=== PATIENT | female | born 1935 | race Caucasian/White ===

== ENCOUNTER 2016-05-13 15:04 | Inpatient (IN) | payer OTHER ==
--- NOTE | 2016-05-13 16:10 | PROVIDER DOCUMENTATION ---
HPI-Neurological Disorder - General Source: patient, family - History of Present Illness-Neuro Severity: reports: moderate Onset/Duration: reports: this morning (11) Timing: reports: still present Context: reports: recent infection, fever, impaired speech Any recent trauma/injury?: reports: none Character of Deficits: reports: impaired speech New weakness or altered sensation location:: reports: none Cognitive Baseline: other (trouble speaking) Gait Baseline: unable to walk <Anita Ling - Last Filed: 05/13/16 17:49> <Martin Wilson - Last Filed: 05/13/16 18:17> <Rayne Ornelas - Last Filed: 05/13/16 21:03> - General Chief Complaint: Shortness of Breath Stated Complaint: FEVER/B/P PROBLEMS Time Seen by Provider: 05/13/16 15:39 Allergies/Adverse Reactions: Patient Allergies Allergy/AdvReac Type Severity Reaction Status Date / Time Penicillins Allergy Unknown Verified 05/13/16 15:19 Home Medications: Home Medication List Medication Instructions Recorded Confirmed Last Taken Type Aspirin [Aspir-Low] 81 mg PO DAILY 05/13/16 05/13/16 Unknown History Calcium Carbonate [Calcium] 1,200 mg PO BID 05/13/16 05/13/16 Unknown History Fluticasone Propionate [Flovent 110 05/13/16 Unknown History Hfa] Furosemide [Lasix] 40 mg PO DAILY 05/13/16 05/13/16 Unknown History Montelukast Sodium [Singulair] 10 mg PO DAILY 05/13/16 05/13/16 Unknown History Nabumetone [Relafen] 500 mg PO BID 05/13/16 05/13/16 Unknown History Polyethylene Glycol 3350 [Miralax] 18 gm PO DAILY 05/13/16 05/13/16 Unknown History Potassium Chloride 20 meq PO BID 05/13/16 05/13/16 Unknown History Verapamil HCl [Verelan] 200 mg PO 05/13/16 Unknown History - History of Present Illness-Neuro Nature of Presenting Problem: Presents to er with family with cc of fever of 100.9 since 11 this morning per family. Reports pt is on her second round of macrobid for UTI and states this am pt took a chill and then her diastolic BP was 145 then pt became incoherent, having trouble speaking and unable to sit up straight. pt is nonambulatory normally per family. Pt reports she has had a cough. Pt denies sob,n,v,cp,abd pain. (Anita Ling) Review of Systems - Adult - REVIEW OF SYSTEMS - ADULT Constitutional: reports: chills, fever. denies: fatique, night sweats, weight gain, weight loss Ears, Nose, Mouth & Throat: denies: ear pain, sinus problem, throat pain Cardiovascular: denies: chest pain, irregular heart rate, orthopnea, syncope Respiratory: reports: cough. denies: pleurisy, shortness of breath, wheezing Gastrointestinal: denies: abdominal pain, diarrhea, nausea, vomiting Musculoskeletal: denies: bone pain, joint pain, joint swelling, neck pain Neurological: reports: other (trouble speaking). denies: dizziness/vertigo, headache/migraines, numbness, paresthesia, seizure, slurred speech <Anita Ling - Last Filed: 05/13/16 17:49> Past History - Adult - PAST MEDICAL HISTORY-ADULT Review of Records: reports: Nursing Assessment Review Major Childhood Illnesses: reports: denies history Cardiovascular: reports: HTN Respiratory: reports: asthma, COPD - PRIOR SURGERIES/PROCEDURES Surgical/Procedure History: reports: appendectomy, breast - IMMUNIZATION STATUS Childhood Immunizations: See Nurse Assessment Flu Vaccine: See Nurse Assessment - SOCIAL HISTORY Smoking: denies Substance Use: none/never <Anita Ling - Last Filed: 05/13/16 17:49> Physical Exam- Neurological - Physical Exam-Neuro Initial Vital Signs Reviewed: Yes General Appearance: alert, slow to respond, other (weak). negative: appears well Eye Exam: bilateral eye: normal inspection, PERRL, EOMI HENMT: moist mucous membranes, normal ENT inspection, TMs normal, pharynx normal Head Injury: no evidence of injury Respiratory: chest non-tender, lungs clear, no pleuratic chest pain, no respiratory distress, no accessory muscle use, decreased breath sounds (all lung ramos) Cardiovascular: no edema, no gallop, no JVD, no murmur, tachycardia Abdominal Exam: non tender, soft, no organomegaly, no pulsatile mass Peripheral Pulses: dorsalis-pedis (R): 2+, dorsalis-pedis (L): 2+ Extremity: no pedal edema, other (diffuse extremity weakness (normal per family) ) service person Exam: normal hearing, PERRL. negative: normal speech, facial weakness Motor/Sensory: no sensory deficit Integumentary: normal color, normal turgor, warm/dry Psych/Mental Status: oriented x 3 - Glascow Coma Scale Best Eye Response: (4) open spontaneously Best Verbal Response: (5) oriented Best Motor Response: (6) obeys commands Total Glascow Score: 15 <Anita Ling - Last Filed: 05/13/16 17:49> Progress - EKG 1 Time of EKG reading by physician:: 17:26 EKG Read and Signed by:: Martin Wilson EKG Interpretation (*Must complete 3 of following elements*): Abnormal Rate: 101 Rhythm: sinus tachy [place]: left QRS: normal - XRAY 1 XRAY: Bilateral XRAY Study: Chest Impression: Abnormal XRAY Interpretation: poor inspiration - CT/MRI 1 CT Study: Head Impression: Abnormal (chronic appearing changes as detailed above but no definite acute intracranial patholgoy. Incidental bilateral mastoid air cell effusion) - CHANGE OF SHIFT REPORT (ED Provider) Report Given and Care Transferred to:: Time of Transfer: 18:00 Items Pending: Other (urine and diagnosis; admit) <Anita Ling - Last Filed: 05/13/16 17:49> <Martin Wilson - Last Filed: 05/13/16 18:17> - CT/MRI 2 CT Study: Angiogram, Pelvis Impression: Normal CT Results: No free air,free fluid,obstruction, hydronephrosis-- radiologist - CONSULTS/PCP/HOSPITALIST Notification #1 *Consult/PCP/Hospitalist*: Dr. Flores- Hospitalist [place] Time Discussed: 20:49 Consult Disposition: Admit <Rayne Ornelas - Last Filed: 05/13/16 21:03> - PLAN OF CARE/RESULTS Progress/Plan/Lab Results: Orders Category Date Time Status Cardiac Monitoring DIRECTED Care 05/13/16 16:03 Active Finger Stick Blood Sugar (ED) DIRECTED Care 05/13/16 16:03 Active Misc. NRSG Communication Order DIRECTED Care 05/13/16 16:03 Active Saline Loc NOW Care 05/13/16 16:03 Active CHEST-PORTABLE [RAD] Stat Exams 05/13/16 16:03 Ordered HEAD W/O CONTRAST [CT] Stat Exams 05/13/16 16:03 Ordered CBC WITH ELECTRONIC DIFF [HEME] Stat Lab 05/13/16 16:03 Ordered COMPREHENSIVE METABOLIC PANEL [CHEM] Stat Lab 05/13/16 16:[address]IME WITH INR PL [COAG] Stat Lab 05/13/16 16:[address] [COAG] Stat Lab 05/13/16 16:03 Ordered TROPONIN T Stat Lab 05/13/16 16:[address] W/POSS RFLX CULT [URINALYSIS] Stat Lab 05/13/16 16:03 Uncollected URINE DRUG SCREEN PL Stat Lab 05/13/16 16:03 Uncollected 0.9% Sodium Chloride Inj [Ns] 1,000 ml Med 05/13/16 16:03 Active IV 75 mls/hr EKG [EKG] Stat Ther 05/13/16 16:03 Ordered Vital Signs - 24 hr 05/13/16 15:11 Temperature 97 F L Pulse Rate 124 H Respiratory 31 H Rate Blood Pressure 140/77 O2 Sat by Pulse 94 L Oximetry Laboratory Tests 05/13/16 05/13/16 05/13/16 15:20 15:20 15:20 WBC 15.83 H RBC 4.81 Hgb 14.8 Hct 43.6 MCV 90.6 MCH 30.8 MCHC 33.9 RDW Std Deviation 14.0 Plt Count 218 MPV 11.8 H Immature Gran % (Auto) 0.3 Neut % (Auto) 93.3 H Lymph % (Auto) 2.5 L Clark % (Auto) 3.6 Eos % (Auto) 0.2 Baso % (Auto) 0.1 Immature Gran # (Auto) 0.05 H Neut # (Auto) 14.77 H Lymph # (Auto) 0.40 L Clark # (Auto) 0.57 Eos # (Auto) 0.03 Baso # (Auto) 0.01 PT INR APTT (Factor Assay) Sodium 133 L Potassium 4.1 Chloride 98 Carbon Dioxide 22 L Anion Gap 13 BUN 24 H Creatinine 1.1 H Estimated GFR/1.73 m2 48 BUN/Creatinine Ratio 22 Glucose 123 H Calculated Osmolality 272 Calcium 10.3 H Total Bilirubin 0.50 AST 167 H ALT 141 H Alkaline Phosphatase 167 H Troponin T < 0.010 Total Protein 8.0 Albumin 4.3 Globulin 4.0 Albumin/Globulin Ratio 1.0 05/13/16 15:20 WBC RBC Hgb Hct MCV MCH MCHC RDW Std Deviation Plt Count MPV Immature Gran % (Auto) Neut % (Auto) Lymph % (Auto) Clark % (Auto) Eos % (Auto) Baso % (Auto) Immature Gran # (Auto) Neut # (Auto) Lymph # (Auto) Clark # (Auto) Eos # (Auto) Baso # (Auto) PT 12.9 INR 0.94 APTT (Factor Assay) 34.0 Sodium Potassium Chloride Carbon Dioxide Anion Gap BUN Creatinine Estimated GFR/1.73 m2 BUN/Creatinine Ratio Glucose Calculated Osmolality Calcium Total Bilirubin AST ALT Alkaline Phosphatase Troponin T Total Protein Albumin Globulin Albumin/Globulin Ratio (Anita Ling) Attestation - Scribe Verification/Attestation Scribe:: Anita Ling Acting as Scribe for:: Martin Wilson Scribe documention review:: This chart was documented by a scribe and accurately reflects the service the provider performed and the decisions made by the provider. - Scribe Verification/Attestation #2 Shift Change Time: 18:00 Scribe Name: Rayne Ornelas Acting as Scribe for:: Donnie Hurtado <Anita Ling - Last Filed: 05/13/16 17:49> Physician Attestation - Physician Attestation I, the provider, attest to the following statement:: Martin Wilson Physician documentation Attestation:: This documentation recorded by the scribe accurately reflects the service I personally performed and the decisions made by me. <Martin Wilson - Last Filed: 05/13/16 18:17>
[2016-05-13 16:57] LABS: INR 0.94 (0.86-1.15); PROTIME 12.9 Seconds (12.1-15.5)
[2016-05-13 16:58] LABS: BASO% 0.1 % (0.0-0.8); EOS# 0.03 X1000 (0.0-0.7); EOS% 0.2 % (0.0-10.0); HEMATOCRIT 43.6 % (37.0-47.0); HEMOGLOBIN 14.8 g/dL (12.0-16.0); IMM GRAN# 0.05 X1000 (0.0-0.04); IMM GRAN% 0.3 % (0.0-0.5); LYMPH% 2.5 % (20.5-51.1); MANUAL DIFF NEEDED? NO; MCH 30.8 PG (27-31); MCHC 33.9 g/dL (33-37); MCV 90.6 FL (81-99); MONO# 0.57 X1000 (0.11-0.59); MONO% 3.6 % (1.7-9.3); MPV 11.8 FL (7.4-10.4); NEUT% 93.3 % (42.2-75.2); PLT 218 X1000 (130-400); RBC 4.81 XMIL (4.2-5.4)
--- NOTE | 2016-05-13 17:12 | Diag Imaging Result Document ---
PROCEDURE NAME: HEAD W/O CONTRAST - 05/13/2016 CT HEAD WITHOUT CONTRAST: COMPARISON: None available. FINDINGS: There is diffuse brain atrophy and there is patchy low attenuation in the periventricular and subcortical white matter suggesting at least moderate microangiopathy. There is a chronic lacunar infarct involving the left cerebellar hemisphere and there is a chronic lacunar infarct versus a prominent Virchow Feng space involving the thalamus on the right. There is no definite acute infarct given the limited sensitivity of CT versus MRI. There is no discrete intracranial mass, mass effect, or intracranial hemorrhage. There are bilateral mastoid air cell effusions with trace fluid on the left and more significant fluid on the right. Surrounding soft tissues and bony structures are essentially unremarkable, otherwise. IMPRESSION: 1. Chronic-appearing changes as detailed above, but no definite acute intracranial pathology. 2. Incidental bilateral mastoid air cell effusions.
--- NOTE | 2016-05-13 17:18 | Diag Imaging Result Document ---
PROCEDURE NAME: CHEST-1 VIEW - 05/13/2016 AP CHEST: FINDINGS: The inspiration is somewhat suboptimal. There may be some atelectasis in the left lower lobe; however, overall there has been no appreciable change since 09/18/2014. IMPRESSION: Poor inspiration.
[2016-05-13 17:25] LABS: ALBUMIN 4.3 g/dL (3.5-5.0); CALCIUM 10.3 mg/dL (8.8-10.2); POTASSIUM 4.1 mmol/L (3.5-5.1); TOTAL BILIRUBIN 0.5 mg/dL (0.20-1.00)
--- NOTE | 2016-05-13 17:36 | EKG Report ---
Test Performed on : 05/13/2016 5:26:28 PM Test Reason : Stroke like symptoms Blood Pressure : / mmHG Vent. Rate : 101 BPM Atrial Rate : 101 BPM P-R Int : 150 ms QRS Dur : 076 ms QT Int : 324 ms P-R-T Axes : 047 -33 055 degrees QTc Int : 420 ms Sinus tachycardia. Left axis deviation Abnormal ECG No previous ECGs available Unconfirmed Result
[2016-05-13 17:51] LABS: URINE SOURCE VOIDED
[2016-05-13 18:03] LABS: BILIRUBIN URINE NEGATIVE (NEGATIVE); BLOOD URINE NEGATIVE (NEGATIVE); COLOR YELLOW; GLUCOSE URINE NEGATIVE (NEGATIVE); LEUKOCYTES URINE 1+ (NEGATIVE); NITRITE URINE NEGATIVE (NEGATIVE); PROTEIN URINE NEGATIVE (NEGATIVE); UROBILINOGEN URINE NORMAL
[2016-05-13 18:04] LABS: UR AMPHETAMINES QUAL NONE DETECTED (NONE DETECT); UR BARBITUATES QUAL NONE DETECTED (NONE DETECT); UR BENZODIAZEPIN QUAL NONE DETECTED (NONE DETECT); UR CANNABINOIDS QUAL NONE DETECTED (NONE DETECT); UR COCAINE QUAL NONE DETECTED (NONE DETECT); UR MDMA QUAL NONE DETECTED (NONE DETECT); UR METHADONE QUAL NONE DETECTED (NONE DETECT); UR METHAMPHETAMINE QUAL NONE DETECTED (NONE DETECT); UR OPIATES QUAL NONE DETECTED (NONE DETECT); UR OXYCODONE QUAL NONE DETECTED (NONE DETECT); UR PCP QUAL NONE DETECTED (NONE DETECT); UR TCA QUAL NONE DETECTED (NONE DETECT)
[2016-05-13 18:27] LABS: CLARITY VERY CLOUDY (CLEAR); URINE CULTURE PL NEEDED? YES; URINE EPITHELIAL CELLS <10 /HPF (<10)
[2016-05-13] MEDS ORDERED: LEVAQUIN 500 MG/D5W 100 ML IV ONE (20:56)
[2016-05-13] MEDS ORDERED: ZOFRAN IV PRN ×2 (20:59→21:56)
[2016-05-13] MEDS ORDERED: TYLENOL PO PRN (20:59)
[2016-05-13] MEDS: NS 1,000 ML IV PRN (22:27)
[2016-05-14] MEDS: VENTOLIN HFA INH SCH (07:31)
[2016-05-14] MEDS: FLOVENT 220 MICROGM HFA INH SCH ×2 (07:51→19:21)
[2016-05-14] MEDS: BROVANA NEB INH SCH (07:51)
[2016-05-14] MEDS ORDERED: DUONEB (A & A) INH PRN (08:04)
--- NOTE | 2016-05-14 08:23 | Diag Imaging Result Document ---
PROCEDURE NAME: ABDOMEN/PELVIS W/O CONTRAST - 05/13/2016 CT UROGRAM WITHOUT CONTRAST: FINDINGS: There are mild atelectatic changes present in the lung bases. There is beam-hardening artifact from the patient's arms which could not be removed from the field. There is extensive coronary calcification. There has been cholecystectomy. There is no evidence of hydronephrosis. There are apparent exophytic renal cysts bilaterally. There is some stool in the colon without evidence of dilatation. The small bowel is not distended. There is extensive atherosclerotic calcification in the aorta which is not distended. There has been previous appendectomy. There is no evidence of free fluid. There has been previous internal fixation of the left proximal femur, and there are old fractures of the ischiopubic ramus on the left. There are spondylotic changes in the lumbar spine with multilevel kyphoplasty. IMPRESSION: No evidence of acute intra-abdominal disease.
[2016-05-14] MEDS: VERELAN PM PO SCH ×2 (08:29→21:24)
[2016-05-14] MEDS: RELAFEN PO SCH ×2 (08:29→21:24)
[2016-05-14] MEDS: CALTRATE 600 PO SCH ×2 (08:29→21:24)
[2016-05-14] MEDS: ASPIRIN EC PO SCH (08:29)
[2016-05-14] MEDS: KLOR-CON PO SCH ×2 (08:29→21:24)
[2016-05-14] MEDS: SINGULAIR PO SCH (08:29)
[2016-05-14] MEDS: LASIX PO SCH (08:29)
[2016-05-14 08:45] LABS: HEMATOCRIT 36.1 % (37.0-47.0); HEMOGLOBIN 12.3 g/dL (12.0-16.0); MCH 31.1 PG (27-31); MCHC 34.1 g/dL (33-37); MCV 91.4 FL (81-99); MPV 11.5 FL (7.4-10.4); RBC 3.95 XMIL (4.2-5.4)
[2016-05-14 08:55] LABS: AGAP 9; ALBUMIN 3.1 g/dL (3.5-5.0); ALKALINE PHOSPHATASE 114 U/L (32-104); BUN 18 mg/dL (8-22); CALCIUM 9.2 mg/dL (8.8-10.2); CHLORIDE 102 mmol/L (98-107); COSMO 270; GOT 70 U/L (10-30); GPT 85 U/L (10-36); MAGNESIUM 1.8 mg/dL (1.5-2.7); POTASSIUM 3.6 mmol/L (3.5-5.1); SODIUM 134 mmol/L (136-145); TCO2 24 mmol/L (25-35)
[2016-05-14] MEDS: MERREM 1 GM in NS 50 ML IV SCH ×2 (08:57→16:43)
--- NOTE | 2016-05-14 11:11 | HISTORY AND PHYSICAL ---
PRIMARY CARE PHYSICIAN: Dr. Kannan Gilbert. CHIEF COMPLAINT: Shortness of breath and generalized weakness. HISTORY OF PRESENT ILLNESS: This is a 80-year-old female with a history of breast cancer, asthma, hypertension, and thyroid disease, who presented to the emergency room complaining of shortness of breath that started during the day. Around 11:00, she developed a fever of 100.9 and has had generalized weakness. She then had trouble speaking and was unable to sit up straight according to the family. Therefore, she was brought him to the emergency room for evaluation. She did state that she has had a cough for a few days. Of note, the patient is nonambulatory. She denies any further symptoms. Chest x-ray revealed left lower lobe pneumonia. She was noted to have a white count of 15. In the emergency room, blood cultures and urine cultures were obtained. She was given Levaquin and admitted for further evaluation and treatment. PAST MEDICAL HISTORY: Asthma, breast cancer, hypertension, hypothyroid. PAST SURGICAL HISTORY: Appendectomy, mastectomy, back surgery, left knee surgery. SOCIAL HISTORY: Denies alcohol, tobacco, or illicit drug use. Lives with family members. ALLERGIES: Penicillin to which she states that she was told that she was allergic. She is unsure of the reaction. HOME MEDICATIONS: Foradil 1 puff b.i.d., ProAir inhaler twice a day, verapamil 200 mg b.i.d., Flovent b.i.d., Relafen 500 b.i.d., Singulair 10 daily, Lasix 40 daily, potassium chloride 20 b.i.d., calcium 1200 b.i.d., aspirin 81 mg daily. REVIEW OF SYSTEMS: A 14-point review of systems is discussed with the patient with pertinent positives stated in HPI. She denies any chest pain, palpitations, syncope, dizziness, any PND, orthopnea, any nausea, vomiting, diarrhea, constipation, black or bloody vomitus, black or bloody stools hematuria. She did have dysuria. PHYSICAL EXAMINATION: GENERAL: This is an 80-year-old female, who is lying in the bed, in no distress. VITAL SIGNS: Blood pressure is 147/73, heart rate 76, respirations are 18, temperature is 98 degrees with oxygen saturations of 99% on 2 L nasal cannula. CARDIOVASCULAR: Regular rate and rhythm. S1 and S2 appreciated. PULMONARY: Breath sounds are clear. She does have some rhonchi that do clear to cough. She has decreased in the bases. GASTROINTESTINAL: Soft, nontender, nondistended with bowel sounds in all 4 quadrants. EXTREMITIES: No clubbing, cyanosis, or edema. Pulses are palpable x4. NEUROLOGIC: She is alert and oriented x3. DIAGNOSTICS: WBC is 15.83 with a hemoglobin of 14.8, hematocrit 43.6, and platelets of 218,000. Sodium is 133, potassium 4.1, BUN is 24, creatinine 1.1 with a glucose of 123. AST of 167, ALT 141, and alkaline phosphatase 167. Troponin is negative. Blood cultures and urine cultures are pending. Chest x-ray revealed a left lower lobe atelectasis. ASSESSMENT AND PLAN: 1. Leukocytosis. 2. Left lower lobe atelectasis, probable pneumonia. 3. History of chronic obstructive pulmonary disease. 4. Asthma. 5. History of breast cancer. 6. Recurrent urinary tract infection. 7. Hyponatremia. 8. Elevated liver function tests. The patient will be admitted to the hospital. She will be placed on telemetry. We will continue her home medications. We will trend daily labs and replete electrolytes as necessary. DuoNeb q.4 hours and q.2 hours p.r.n. with incentive spirometer. In review of the patient's previous sensitivities, she has had an Escherichia coli urinary tract infection with 3 cultures, the last being 04/03/2016. She was extended-spectrum beta-lactamase positive. 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 She has tried nitrofurantoin twice with no change in symptoms. We did verify the reaction to penicillin, as she states that she was told that when she was a child that she had an allergy. She is not sure. She has taken Zithromax multiple times with no problems. We will go ahead and start Merrem. Once our sensitivities return, if needed, we will change antibiotics. Further treatments pending hospital course. Dictated by DAVON Reinoso for Jimi Flores MD
[2016-05-14] MEDS: DUONEB (A & A) INH SCH ×4 (11:23→23:03)
[2016-05-14] MEDS: NS 1,000 ML IV PRN (12:40)
[2016-05-14] MEDS: TYLENOL PO PRN (12:44)
[2016-05-14] MEDS ORDERED: MYCOSTATIN SUSP PO ONE (21:14)
[2016-05-14] MEDS: LEVAQUIN 500 MG/D5W 100 ML IV SCH (21:24)
[2016-05-15] MEDS: MERREM 1 GM in NS 50 ML IV SCH ×3 (00:07→16:51)
[2016-05-15] MEDS: DUONEB (A & A) INH SCH ×6 (02:46→23:25)
[2016-05-15] MEDS: NS 1,000 ML IV PRN ×2 (03:35→16:52)
[2016-05-15 06:22] LABS: HEMATOCRIT 32.8 % (37.0-47.0); HEMOGLOBIN 10.9 g/dL (12.0-16.0); MCH 30.8 PG (27-31); MCHC 33.2 g/dL (33-37); MCV 92.7 FL (81-99); MPV 11.9 FL (7.4-10.4); RBC 3.54 XMIL (4.2-5.4)
[2016-05-15 06:39] LABS: AGAP 10; ALBUMIN 2.6 g/dL (3.5-5.0); ALKALINE PHOSPHATASE 99 U/L (32-104); BUN 12 mg/dL (8-22); CALCIUM 9.3 mg/dL (8.8-10.2); CHLORIDE 104 mmol/L (98-107); COSMO 270; GOT 45 U/L (10-30); GPT 59 U/L (10-36); SODIUM 135 mmol/L (136-145); TCO2 21 mmol/L (25-35); TOTAL PROTEIN 5.6 g/dL (6.3-8.3)
[2016-05-15] MEDS: BROVANA NEB INH SCH ×3 (06:47→19:43)
[2016-05-15] MEDS: VENTOLIN HFA INH SCH ×2 (06:48→09:15)
[2016-05-15] MEDS: FLOVENT 220 MICROGM HFA INH SCH ×2 (07:14→19:43)
[2016-05-15] MEDS ORDERED: DIFLUCAN PO ONE (09:36)
[2016-05-15] MEDS: LASIX PO SCH (09:49)
[2016-05-15] MEDS: VERELAN PM PO SCH ×2 (09:49→20:01)
[2016-05-15] MEDS: SINGULAIR PO SCH (09:49)
[2016-05-15] MEDS: RELAFEN PO SCH ×2 (09:49→20:01)
[2016-05-15] MEDS: KLOR-CON PO SCH ×2 (09:49→20:01)
[2016-05-15] MEDS: CALTRATE 600 PO SCH ×2 (09:49→20:01)
[2016-05-15] MEDS: ASPIRIN EC PO SCH (09:50)
--- NOTE | 2016-05-15 11:00 | PROGRESS NOTE ---
DATE: 05/15/2016 SUBJECTIVE: Patient states she is feeling a lot better this morning. Denies any current fevers or chills. Denies any cough or congestion. PHYSICAL: Temp 98, pulse 80, respiratory 20, BP 104/71.General: Patient well developed, well nourished. Currently in no real respiratory distress. She is awake, alert. Neck: Supple. CV: Regular rate. Chest: Relatively clear. Abdomen: Soft. Extremities: Moves all extremities. Neurologic: No changes. ASSESSMENT: 1. Leukocytosis resolved. 2. Anemia, mild, chronic disease. 3. Hyponatremia resolved. 4. Acute renal failure resolved. 5. Hypercalcemia resolved secondary to volume depletion. 6. Volume depletion resolved. 7. Acute hepatitis improving. 8. Mild protein calorie malnutrition. 9. Urinary tract infection. PLAN: Will continue patient on antibiotics until her urine is negative at 48 hours. Hopefully can discharge home in the a.m.
[2016-05-15] MEDS: TYLENOL PO PRN (19:51)
[2016-05-15] MEDS: LEVAQUIN 500 MG/D5W 100 ML IV SCH (20:01)
[2016-05-16] MEDS: MERREM 1 GM in NS 50 ML IV SCH ×2 (00:11→10:09)
[2016-05-16] MEDS: DUONEB (A & A) INH SCH ×4 (03:24→15:03)
[2016-05-16] MEDS: BROVANA NEB INH SCH (08:19)
[2016-05-16] MEDS: FLOVENT 220 MICROGM HFA INH SCH (08:20)
[2016-05-16 09:10] VITALS: BP 148/56
[2016-05-16] MEDS: LASIX PO SCH (10:10)
[2016-05-16] MEDS: RELAFEN PO SCH (10:10)
[2016-05-16] MEDS: SINGULAIR PO SCH (10:10)
[2016-05-16] MEDS: CALTRATE 600 PO SCH (10:10)
[2016-05-16] MEDS: VERELAN PM PO SCH (10:10)
[2016-05-16] MEDS: KLOR-CON PO SCH (10:10)
[2016-05-16] MEDS: ASPIRIN EC PO SCH (10:10)
--- NOTE | 2016-05-17 06:02 | DISCHARGE SUMMARY ---
ADMISSION DATE: 05/13/2016 DISCHARGE DATE: 05/16/2016 DISCHARGE DIAGNOSES: 1. Leukocytosis, resolved. 2. Anemia of chronic disease. 3. History of chronic obstructive pulmonary disease. 4. Left lower lobe atelectasis. 5. Left lower lobe pneumonia, improved. 6. History of breast cancer. 7. Recurrent urinary tract infection. 8. Hyponatremia, resolved. Sodium 135 on discharge. Was 133 on admit. 9. Elevated liver function tests. Continued to improve. AST 167 admit, 45 discharge. ALT 141 admit, 59 discharge. 10. Mild protein calorie malnutrition. CONSULTATIONS: None. PROCEDURES: None. BRIEF HOSPITAL COURSE: The patient 80-year-old female who apparently has very limited mobility at home. She was admitted, treated in the usual fashion. Placed on antibiotics and thankfully she had an uneventful hospital course. On discharge, she is awake, alert. She is tolerating p.o. Levaquin without any problems. Therefore, she will be discharged home. DISPOSITION: The patient will be discharged home. She will follow up with her primary care Dr. Gilbert in 1-2 weeks. TIME SPEND ON DISCHARGE: Thirty-five minutes was spent in discharge planning and instructions. She will continue Levaquin for a total 7 days. No other changes were made in her home medications.
[2016-05-17] MEDS ORDERED: DIFLUCAN PO SCH (09:00)
== END 2016-05-16 15:45 | disposition home or self-care (01) | DRG 190 ==
LOC: P.ED 15:04 → OBSVTOIN 21:36 → P.MEDSURG 21:36
PROVIDERS: ATTEND Family Medicine
DX: J44.0 Chronic obstructive pulmonary disease with (acute) lower respiratory infection (principal); J18.9 Pneumonia, unspecified organism; K72.00 Acute and subacute hepatic failure without coma; N39.0 Urinary tract infection, site not specified; D63.8 Anemia in other chronic diseases classified elsewhere; E86.9 Volume depletion, unspecified; E87.1 Hypo-osmolality and hyponatremia; E44.1 Mild protein-calorie malnutrition; J98.11 Atelectasis; J45.909 Unspecified asthma, uncomplicated; I10 Essential (primary) hypertension; E83.52 Hypercalcemia; Z79.899 Other long term (current) drug therapy; Z79.82 Long term (current) use of aspirin; Z85.3 Personal history of malignant neoplasm of breast; Z79.1 Long term (current) use of non-steroidal anti-inflammatories (NSAID)
CPT/HCPCS: 36415; 70450; 71010; 74176; 80053; 80305; 81001; 82140; 83605; 83735; 84484; 85025; 85027; 85610; 85730; 87040; 87088; 93005; 94640; 94761; 94799; J2185; J7030